=== PATIENT | female | born 1950 | race Two or more races ===

== ENCOUNTER 2016-11-08 08:22 | Emergency (ER) | payer MEDICARE, OTHER ==
[~2016-11-08] VITALS: Ht 157.5 cm; Wt 72.6 kg
[~2016-11-08 08:22] MED LIST: ACETAMINOPHEN-1 EAC1 ORAL; ACETAMINOPHEN500 M3 ORAL; ACTOS15 MG ORAL; ASPIR 8181 MG ORAL; ATORVASTATIN CA40 MG ORAL; BENAZEPRIL HCL20 MG ORAL; BENAZEPRIL HCL40 MG ORAL; CYCLOBENZAPRINE10 MG ORAL; GABAPENTIN300 MG PO; GLIMEPIRIDE4 MG ORAL; HYDROCHLOROTHIA25 MG ORAL; METFORMIN HCL1000 M1 ORAL; METFORMIN HCL850 M1 ORAL; NORCO 5-325 TA1 EACH ORAL; OMEPRAZOLE20 M2 PO; SIMVASTATIN40 MG ORAL; ZOFRAN ODT4 MG ORAL
[2016-11-08 08:33] VITALS: BP 154/82
[2016-11-08] MEDS ORDERED: Ketorolac 30mg Inj IV ONE (08:45)
[2016-11-08] MEDS ORDERED: LORazepam Inj 2mg/ml 1ml IV ONE (08:45)
[2016-11-08] MEDS ORDERED: Morphine Sulfate 4mg/ml Inj IVP ONE (08:45)
--- NOTE | 2016-11-08 09:17 | Emergency Room Report ---
History of Present Illness General Chief Complaint: Neck Pain Source: Patient, Family Member Present Illness HPI The patient presents with severe left-sided neck pain. This is been going on for several days. She's having difficulty turning her head and also sleeping. She denies any trauma. No numbness in UE. No weakness. In the past she had to be hospitalized for 5-6 days with his pain was severe. This happened in 2012 and an MRI was done at that time. She denies any exertional component to this. She also denies fevers, cough, sore throat, nausea, vomiting. She's been taking ibuprofen with little relief. She's not been getting massage or applying heat. She states the pain is 10/10 , burning and aching with muscle spasms. It radiates to her shoulder and upper back. The MRI in 2012 reveals: deposit of fat or hemangioma in the C4 vertebral body. Otherwise was negative exam. Allergies: Coded Allergies: No Known Allergies (Unverified , 06/15/12) Patient History Past Medical History: see triage record Social History: Denies: smoking Social History Narrative Here with her daughter Reviewed Nursing Documentation: PMH: Agreed, PSxH: Agreed Nursing Documentation-PMH Hx Cardiac Problems: Yes Hx Hypertension: Yes Hx Diabetes: Yes Hx Cancer: No Hx Gastrointestinal Problems: No Hx Neurological Problems: No - Rheumatic Arthritis Hx Peripheral Neuropathy: Yes Hx Weakness: Yes Review of Systems All Other Systems: negative except mentioned in HPI Physical Exam Vital Signs Date Time Temp Pulse Resp B/P (MAP) Pulse Ox O2 Delivery O2 Flow Rate FiO2 11/08/16 08:33 97.9 92 20 154/82 100 Room Air Sp02 EP Interpretation: reviewed, normal General Appearance: well appearing, no apparent distress, GCS 15 Head: normocephalic Eyes: bilateral eye normal inspection, bilateral eye PERRL ENT: moist mucus membranes Neck: no bony tend, limited range of motion - with muscle spasm, more on L Respiratory: chest non-tender, lungs clear, normal breath sounds Cardiovascular #1: regular rate, rhythm Cardiovascular #2: 2+ radial (R) Gastrointestinal: normal inspection, normal bowel sounds, non tender, no mass, non-distended Musculoskeletal: back normal - except upper back near neck - muscle spasms, gait/station normal, normal range of motion Neurologic: alert, oriented x3, motor strength/tone normal, DTRs symmetric, sensory intact, cerebellar normal, normal gait, speech normal Psychiatric: mood/affect normal - in pain Skin: normal inspection, warm/dry Medical Decision Making Diagnostic Impression: Primary Impression: Neck pain Additional Impression: Osteoarthritis Qualified Codes: M47.812 - Spondylosis without myelopathy or radiculopathy, cervical region ER Course Patient with several days of severe neck pain and stiffness with h/o same. Ddx : spasms, OA, atypical cardiac issue amongst others. No h/o trauma or strain. Also no red flag sy or signs. Evaluation with be with x-rays (as MRI in past) both c-spine and CXR, labs. Treatment will be aggressive with anti- inflammatories and analgesics and muscle relaxants. Films with DJD. EKG normal. CXR normal. Labs essentially unremarkable. Cervical collar placed by tech with some improvement. Placement appropriate and position good. Improved with treatment. Patient stable for outpatient observation and treatment. EKG Diagnostic Results Rate: normal Rhythm: NSR ST Segments: no acute changes Rhythm Strip Diag. Results EP Interpretation: yes Rhythm: NSR, no PVC's, no ectopy Chest X-Ray Diagnostic Results Chest X-Ray Diagnostic Results : Chest X-Ray Ordered: Yes # of Views/Limited/Complete: 1 View Indication: Other Interpretation: no consolidation, no effusion, no pneumothorax, no acute cardiopulmonary disease Impression: No acute disease Electronically Signed by: Keanu Harris MD Other X-Ray Diagnostic Results Other X-Ray Diagnostic Results : X-Ray ordered: c spine # of Views/Limited Vs Complete: 4 View Indication: Pain EP Interpretation: Yes Interpretation: no dislocation, no soft tissue swelling, no fractures, other - djd Impression: Other Electronically Signed by: Keanu Harris MD Last Vital Signs Date Time Temp Pulse Resp B/P (MAP) Pulse Ox O2 Delivery O2 Flow Rate FiO2 11/08/16 12:59 87 14 146/69 100 Room Air 11/08/16 12:42 97.8 Status: improved Disposition: HOME, SELF-CARE Condition: Improved Scripts Tramadol Hcl* (ULTRAM*) 50 Mg Tablet 50 MG ORAL Q6H Y for For Pain, #14 TAB 0 Refills Prov: Keanu Harris M.D. 11/08/16 Ibuprofen* (MOTRIN*) 600 Mg Tablet 600 MG ORAL Q6H Y for For Pain, #20 TAB Prov: Keanu Harris M.D. 11/08/16 Referrals: NOT CHOSEN DEEP/,REFERRING (PCP) Keanu Harris M.D. Nov 08, 2016 09:17
[2016-11-08 09:18] LABS: BASOPHILS % (AUTO) 0.9 % (0.0-2.0); EOSINOPHILS % (AUTO) 1.2 % (0.0-3.0); LYMPHOCYTES % (AUTO) 19.5 % (20.0-45.0); MEAN CORPUSCULAR HEMOGLOBIN 30.5 PG (27.0-31.0); MEAN CORPUSCULAR HGB CONC 32.2 G/DL (32.0-36.0); MEAN CORPUSCULAR VOLUME 95 FL (80-99); MONOCYTES % (AUTO) 8.2 % (1.0-10.0); NEUTROPHILS % (AUTO) 70.2 % (45.0-75.0); PLATELET COUNT 256 K/UL (150-450); RED BLOOD COUNT 3.38 M/UL (4.20-5.40); RED CELL DISTRIBUTION WIDTH 12.5 % (11.6-14.8); WHITE BLOOD COUNT 7.7 K/UL (4.8-10.8)
[2016-11-08 09:31] LABS: TROPONIN I < 0.30 ng/mL (<=0.30)
[2016-11-08 09:32] LABS: ALANINE AMINOTRANSFERASE 15 U/L (3-33); ALBUMIN/GLOBULIN RATIO 1.3 (1.0-2.7); ANION GAP 14 (5-15); ASPARTATE AMINO TRANSFERASE 15 U/L (5-40); CALCIUM 9.5 mg/dL (8.6-10.2); CARBON DIOXIDE 26 mEQ/L (20-30); CHLORIDE 97 mEQ/L (98-107); CREATININE 1.1 mg/dL (0.5-0.9); GLOMERULAR FILTRATION RATE 49.9 mL/min (>60); HEMOLYSIS 0; POTASSIUM 4.8 mEQ/L (3.4-4.9); SODIUM 137 mEQ/L (135-145); TOTAL PROTEIN 7.6 g/dL (6.6-8.7)
[2016-11-08 09:54] VITALS: BP 126/58
[2016-11-08 10:30] LABS: ERYTHROCYTE SEDIMENTATION RATE 91 MM/HR (0-30)
--- NOTE | 2016-11-08 11:08 | Diagnostic Imaging Report ---
Indication: Neck Pain Findings: 3 views of the cervical spine were obtained. Mild Degenerative changes of the cervical spine are demonstrated. This is characterized by vertebral endplate and facet osteophyte formation. There is no acute fracture identified. Alignment is normal. The open-mouth odontoid view shows an intact dens and good alignment of the lateral masses with respect to the body of C2. There is no soft tissue swelling. Impression: Mild spondylosis
--- NOTE | 2016-11-08 11:09 | Diagnostic Imaging Report ---
Indication: Dyspnea Comparison: None A single view chest radiograph was obtained. Findings: Cardiomediastinal appearance is within normal limits for age. Pulmonary vascularity is appropriate. The diaphragmatic contour is smooth and costophrenic angles are sharp. No pleural effusions are identified. The bones are osteopenic. Impression: No acute findings
[2016-11-08 11:13] VITALS: BP 134/65
[2016-11-08 12:42] VITALS: BP 146/69
[2016-11-08] MEDS ORDERED: TRAMADOL HCL50 MG ORAL (12:54)
[2016-11-08] MEDS ORDERED: IBUPROFEN600 MG ORAL (12:54)
[2016-11-08 12:59] VITALS: BP 146/69
== END 2016-11-08 12:59 | disposition home or self-care (01) ==
LOC: EMR 08:47
DX: M47.812 Spondylosis without myelopathy or radiculopathy, cervical region (principal); E11.9 Type 2 diabetes mellitus without complications; I10 Essential (primary) hypertension
CPT/HCPCS: 36415; 71010; 72040; 80053; 82550; 84484; 85025; 85651; 93005; 96374; 96375; 99284; J1885; J2270

== ENCOUNTER 2017-04-22 11:29 | Emergency (ER) | payer MEDICARE, OTHER ==
[~2017-04-22] VITALS: Ht 162.6 cm; Wt 81.6 kg
[~2017-04-22 11:29] MED LIST changes: +IBUPROFEN600 MG ORAL; +TRAMADOL HCL50 MG ORAL
[2017-04-22 12:25] VITALS: BP 147/58
[2017-04-22] MEDS ORDERED: Cyclobenzaprine 10mg Tab ORAL ONE (12:30)
--- NOTE | 2017-04-22 12:43 | Emergency Room Report ---
History of Present Illness General Chief Complaint: Pain Source: Patient, Family Member Present Illness HPI 67yo f presents with right shoulder pain for the past week she also been having a cough with clear sputum production, she denies shortness of breath, denies chest pain, denies abdominal pain or any other complaints She does report she tried Tylenol and ibuprofen with only partial relief she reports the pain is isolated to the right shoulder It's constant but worse with any range of motion of her shoulder Allergies: Coded Allergies: No Known Allergies (Unverified , 06/15/12) Patient History Past Medical History: see triage record Reviewed Nursing Documentation: PMH: Agreed, PSxH: Agreed Nursing Documentation-PMH Hx Cardiac Problems: Yes Hx Hypertension: Yes Hx Diabetes: Yes Hx Cancer: No Hx Gastrointestinal Problems: No Hx Neurological Problems: No - Rheumatic Arthritis Hx Peripheral Neuropathy: Yes Hx Weakness: Yes Review of Systems All Other Systems: negative except mentioned in HPI Physical Exam Vital Signs Date Time Temp Pulse Resp B/P (MAP) Pulse Ox O2 Delivery O2 Flow Rate FiO2 04/22/17 11:48 98.2 87 24 147/58 95 Room Air 98.2 Sp02 EP Interpretation: reviewed, normal General Appearance: no apparent distress, alert, non-toxic Head: normocephalic Eyes: bilateral eye normal inspection, bilateral eye PERRL, bilateral eye EOMI ENT: normal ENT inspection, hearing grossly normal, normal pharynx, no angioedema, normal voice, moist mucus membranes Neck: normal inspection, full range of motion, supple, supple/symm/no masses Respiratory: chest non-tender, lungs clear, normal breath sounds, chest symmetrical, palpation of chest normal Cardiovascular #1: normal peripheral pulses, regular rate, rhythm Cardiovascular #2: 2+ radial (R), 2+ radial (L) Gastrointestinal: normal inspection, non tender, soft, no mass, no guarding, no rebound Rectal: deferred Genitourinary: normal inspection, no CVA tenderness Musculoskeletal: back normal, gait/station normal, normal range of motion - Right shoulder with tenderness anterolateral flexion and abduction, nor erythema or warmth, non-tender, no calf tenderness Neurologic: alert, responsive, forepart reducer III-XII nml as tested, motor strength/tone normal, sensory intact, speech normal Psychiatric: judgement/insight normal, memory normal, mood/affect normal, no suicidal/homicidal ideation Skin: normal color, no rash, warm/dry, normal turgor Lymphatic: no adenopathy Medical Decision Making Reaction to Intervention: Improved Diagnostic Impression: Primary Impression: Pain ER Course Patient with right shoulder pain exam consistent with rotator cuff impingement syndrome, will give NSAIDs and muscle relaxants. She was given Flexeril here with some improvement. I'll recommend orthopedic follow-up as an outpatient. EKG Diagnostic Results EKG Time: 12:07 EP Interpretation: No ST Elevationsno depressions noted T-wave inversions Rate: normal Rhythm: NSR ST Segments: no acute changes ASA given to the pt in ED: No Rhythm Strip Diag. Results Rhythm Strip Time: 12:42 EP Interpretation: yes Rate: 63 Rhythm: NSR, no PVC's, no ectopy Other X-Ray Diagnostic Results Other X-Ray Diagnostic Results : X-Ray ordered: R shoulder # of Views/Limited Vs Complete: 1 View Indication: Pain EP Interpretation: Yes PA Xray: Interpretation reviewed Interpretation: no dislocation, no soft tissue swelling, no fractures Impression: No acute disease Electronically Signed by: 67yo f presents with right shoulder pain for the past week she also been becker Last Vital Signs Date Time Temp Pulse Resp B/P (MAP) Pulse Ox O2 Delivery O2 Flow Rate FiO2 04/22/17 12:34 98.2 04/22/17 12:25 82 24 147/58 95 Room Air Status: improved Disposition: HOME, SELF-CARE Condition: Stable Referrals: NON PHYSICIAN (PCP) LUCI DELUCA M.D Apr 22, 2017 12:43
[2017-04-22] MEDS ORDERED: Ketorolac 60mg Inj IM ONE (12:45)
[2017-04-22 12:47] LABS: BASOPHILS % (AUTO) 0.6 % (0.0-2.0); EOSINOPHILS % (AUTO) 0.8 % (0.0-3.0); HEMOGLOBIN 9.7 G/DL (12.0-16.0); LYMPHOCYTES % (AUTO) 15.1 % (20.0-45.0); MEAN CORPUSCULAR VOLUME 88 FL (80-99); MONOCYTES % (AUTO) 7.3 % (1.0-10.0); NEUTROPHILS % (AUTO) 76.2 % (45.0-75.0); PLATELET COUNT 345 K/UL (150-450); RED BLOOD COUNT 3.31 M/UL (4.20-5.40); RED CELL DISTRIBUTION WIDTH 12.1 % (11.6-14.8); WHITE BLOOD COUNT 9.8 K/UL (4.8-10.8)
[2017-04-22 12:59] LABS: ANION GAP 6 mmol/L (5-15); BLOOD UREA NITROGEN 32 mg/dL (7-18); CALCIUM 9.7 MG/DL (8.5-10.1); CARBON DIOXIDE 29 MMOL/L (21-32); CHLORIDE 99 MMOL/L (98-107); CREATININE 1.5 MG/DL (0.55-1.30); SODIUM 134 MMOL/L (136-145)
[2017-04-22 13:03] LABS: ALANINE AMINOTRANSFERASE 22 U/L (12-78); ALBUMIN 3.3 G/DL (3.4-5.0); ALBUMIN/GLOBULIN RATIO 0.7 (1.0-2.7); ALKALINE PHOSPHATASE 92 U/L (46-116); ASPARTATE AMINO TRANSFERASE 16 U/L (15-37); BILIRUBIN,TOTAL 0.2 MG/DL (0.2-1.0)
[2017-04-22] MEDS ORDERED: NORCO 5-325 TA1 EACH ORAL (14:27)
[2017-04-22] MEDS ORDERED: CYCLOBENZAPRINE10 MG ORAL (14:27)
[2017-04-22 14:41] VITALS: BP 148/78
--- NOTE | 2017-04-23 10:32 | Diagnostic Imaging Report ---
Indication: Right shoulder pain Technique: Right shoulder 3 views Comparison: None Findings: There is no acute fracture or dislocation. Acromioclavicular degenerative changes are present. There is osteopenia. Chondrocalcinosis is present. Impression: No acute osseous abnormality. Chronic findings as above.
--- NOTE | 2017-04-23 16:18 | Cardiology Report ---
APPROVED REPORT EKG Measurement Heart [id number] Normal sinus rhythm Low voltage QRS Borderline ECG
== END 2017-04-22 14:43 | disposition home or self-care (01) ==
LOC: EMR 12:29
DX: M75.41 Impingement syndrome of right shoulder (principal); I10 Essential (primary) hypertension; E11.9 Type 2 diabetes mellitus without complications; G62.9 Polyneuropathy, unspecified
CPT/HCPCS: 36415; 80053; 83690; 84484; 85025; 93005; 96372; 99283

== ENCOUNTER 2018-03-04 12:37 | Emergency (ER) | payer MEDICARE, OTHER ==
[~2018-03-04] VITALS: Ht 162.6 cm; Wt 81.6 kg
[2018-03-04 12:48] VITALS: BP 155/65
--- NOTE | 2018-03-04 12:48 | NUR ---
ED Nurse Note: Pt came into the Er w/ complaints of left lower back pain x 4 days. Rating the pain a 9/10. Non radiating. A + O x4. Ambulatory. Skin warm to touch. Pt denies any trauma.
[2018-03-04] MEDS ORDERED: HYDROcodone/Acetamin 5/325 tab ORAL ONE (13:00)
--- NOTE | 2018-03-04 13:01 | NUR ---
ED Nurse Note: Urine has been collected and sent to lab. Awaiting results.
--- NOTE | 2018-03-04 13:02 | NUR ---
ED Nurse Note: Pt went down to get xray via wheelchair.
--- NOTE | 2018-03-04 13:14 | NUR ---
ED Nurse Note: PT BACK FROM CT VIA WHEELCHAIR.
--- NOTE | 2018-03-04 14:32 | NUR ---
ED Nurse Note: Notified lab of urine results still pending. Awaiting results.
[2018-03-04 14:35] LABS: APPEARANCE,URINE CLEAR; BILIRUBIN, URINE NEGATIVE (NEGATIVE); COLOR,URINE PALE YELLOW; GLUCOSE, URINE (UA) 2+ (NEGATIVE); KETONES,URINE NEGATIVE (NEGATIVE); LEUKOCYTE ESTERASE ,URINE 1+ (NEGATIVE); NITRITE,URINE NEGATIVE (NEGATIVE); PH,URINE 6.5 (4.5-8.0); PROTEIN,URINE NEGATIVE (NEGATIVE); UROBILINOGEN,URINE NORMAL MG/DL (0.0-1.0)
[2018-03-04] MEDS ORDERED: NORCO 5-325 TA1 EACH ORAL (14:51)
[2018-03-04 14:55] VITALS: BP 130/75
--- NOTE | 2018-03-04 14:56 | NUR ---
ED Nurse Note: Discharge instructions given to pt. Answered all questions. Verbalized understanding. No acute distress noted. ID band removed. Left ER w/ all belongings and w/ a steady gait.
--- NOTE | 2018-03-04 21:01 | Emergency Room Report ---
History of Present Illness General Chief Complaint: Back Pain-No Injury Source: Patient Present Illness HPI The patient is a 68-year-old female presenting for left lower back pain for the past 3 days. She states that this began without any known cause. Pain is now a 9 out of 10 dull ache and does not radiate. Worse with movement such as twisting and bending. She denies previous injury to the area. She denies other symptoms including numbness, tingling, dysuria, hematuria, increased frequency, abdominal pain, N, V, F, chills Allergies: Coded Allergies: No Known Allergies (Unverified , 06/15/12) Patient History Past Medical History: see triage record Pertinent Family History: none Reviewed Nursing Documentation: PMH: Agreed; PSxH: Agreed Nursing Documentation-PMH Hx Cardiac Problems: Yes Hx Hypertension: Yes Hx Diabetes: Yes Hx Cancer: No Hx Gastrointestinal Problems: No Hx Neurological Problems: No - Rheumatic Arthritis Hx Peripheral Neuropathy: Yes Hx Weakness: Yes Review of Systems All Other Systems: negative except mentioned in HPI Physical Exam Vital Signs Date Time Temp Pulse Resp B/P (MAP) Pulse Ox O2 Delivery O2 Flow Rate FiO2 03/04/18 12:41 97.9 94 15 157/63 98 Room Air Sp02 EP Interpretation: reviewed, normal General Appearance: no apparent distress, alert, GCS 15, non-toxic Head: normocephalic, atraumatic Eyes: bilateral eye normal inspection, bilateral eye PERRL Respiratory: chest non-tender, lungs clear, normal breath sounds, speaking full sentences Cardiovascular #1: regular rate, rhythm, no edema Gastrointestinal: normal bowel sounds, non tender, soft, non-distended, no guarding Genitourinary: no CVA tenderness Musculoskeletal: back normal, tender - L lumbar paraspinal muscles and L lateral/posterior pelvis Neurologic: alert, oriented x3, responsive, motor strength/tone normal, sensory intact, speech normal Psychiatric: judgement/insight normal, memory normal, mood/affect normal, no suicidal/homicidal ideation Skin: normal color, no rash, warm/dry, well hydrated Medical Decision Making PA Attestation Dr. Hollingsworth is my supervising physician. Patient management was discussed with my supervising physician Diagnostic Impression: Primary Impression: Back pain ER Course The patient is a 68-year-old female presenting for left lower back pain for the past 3 days. Ddx considered include but not limited to sprain/strain, fracture, contusion, muscle spasm PE: Afebrile. NAD Abd soft and non tender No CVA tenderness L lumbar paraspinal muscles and L lateral/posterior pelvis. Evident pain with L hip flexion and extension Xray of pelvis shows degenerative changes. No acute findings SHe is given pain medication in ER and feels significantly better. She was told she needs to F/U with PCP G[facility]IN[facility] ER precautions given Laboratory Tests Test 03/04/18 12:00 Urine Color Pale yellow Urine Appearance Clear Urine pH 6.5 (4.5-8.0) Urine Specific Cornelia 1.015 (1.005-1.035) Urine Protein Negative (NEGATIVE) Urine Glucose (UA) 2+ (NEGATIVE) H Urine Ketones Negative (NEGATIVE) Urine Blood Negative (NEGATIVE) Urine Nitrite Negative (NEGATIVE) Urine Bilirubin Negative (NEGATIVE) Urine Urobilinogen Normal MG/DL (0.0-1.0) Urine Leukocyte Esterase 1+ (NEGATIVE) H Urine RBC 0-2 /HPF (0 - 2) Urine WBC 2-4 /HPF (0 - 2) Urine Squamous Epithelial Cells Occasional /LPF Urine Bacteria Occasional /HPF (NONE) Lab Results Impression UA unremarkable Other X-Ray Diagnostic Results Other X-Ray Diagnostic Results : X-Ray ordered: pelvis # of Views/Limited Vs Complete: 2 View Indication: Pain EP Interpretation: Yes PA Xray: Interpretation reviewed, by supervising MD, and agrees with findings. Interpretation: no dislocation, no soft tissue swelling, no fractures Impression: No acute disease Electronically Signed by: Ronnie Sheets PA-C Last Vital Signs Date Time Temp Pulse Resp B/P (MAP) Pulse Ox O2 Delivery O2 Flow Rate FiO2 03/04/18 14:55 98.0 78 20 130/75 98 Room Air Status: improved Disposition: HOME, SELF-CARE Condition: Improved Scripts Hydrocodone Bit/Acetaminophen 5-325* (NORCO 5-325*) 1 Each Tablet 1 TAB ORAL Q6H PRN for For Pain, #10 TAB 0 Refills Prov: RONNIE SHEETS PShyanne 03/04/18 Patient Instructions: Back Pain, Adult Additional Instructions: I discussed my findings with the patient. All questions and concerns have been answered. Treatment and medication compliance have been addressed. Return to ED if symptoms worsen, new symptoms arise, or if needed for any reason. Patient verbalized understanding of discharge instructions. Please keep your appointment with her primary doctor which is scheduled for 03/07 RONNIE SHEETS Mar 04, 2018 21:01
--- NOTE | 2018-03-05 11:57 | Diagnostic Imaging Report ---
Indication: Pain Technique: XRAY Bilateral Hip w/AP Pelvis Comparison: Correlation made to images of the pelvis from CT of the abdomen and pelvis 06/16/2012 Findings: Bones are demineralized. No radiographically acute fracture identified. There are degenerative changes of the hips with some sclerosis and subchondral cystic change. Some enthesopathic changes of the pelvic bones noted. Hip with joints are maintained. Symphysis pubis and sacroiliac joints are maintained. Degenerative changes are partially visualized in the lower lumbar spine. Bowel gas pattern unremarkable. Impression: No radiographically appreciable acute fracture. Additional findings as above.
== END 2018-03-04 14:56 | disposition home or self-care (01) ==
LOC: EMR 12:55
DX: M54.5 Low back pain (principal); M25.552 Pain in left hip; I10 Essential (primary) hypertension; E11.9 Type 2 diabetes mellitus without complications; M06.9 Rheumatoid arthritis, unspecified
CPT/HCPCS: 73521; 81003; 99283

== ENCOUNTER 2018-08-06 20:41 | Emergency (ER) | payer MEDICARE, OTHER ==
[~2018-08-06] VITALS: Ht 162.6 cm; Wt 81.6 kg
--- NOTE | 2018-08-06 20:45 | NUR ---
ED Nurse Note: Pt brought in by wheelchair for complaint of pain 10/10 on right knee. Pt states she was walking down the stair when she "felt a pop". From there she was unable to bear any weight on extremity. Pt denies fall.
--- NOTE | 2018-08-06 21:20 | Emergency Room Report ---
History of Present Illness General Chief Complaint: Lower Extremity Injury Source: Patient Present Illness HPI This is a 68-year-old female with history of high blood pressure and diabetes. She presents with chief complaint of left knee pain. She was walking and felt a pop in the operative area. She did not fall. Since then she is painful to bear weight. Pain is 10 out of 10. Worse with walking. better with rest. Rating down the calf. Denies any trauma. Allergies: Coded Allergies: No Known Allergies (Unverified , 06/15/12) Patient History Past Medical History: see triage record, old chart reviewed, DM, HTN Past Surgical History: other Pertinent Family History: none Social History: Denies: smoking Last Menstrual Period: NA Now: No : 0 Para: 0 Immunizations: other Reviewed Nursing Documentation: PMH: Agreed; PSxH: Agreed Nursing Documentation-PMH Hx Cardiac Problems: Yes Hx Hypertension: Yes Hx Diabetes: Yes Hx Cancer: No Hx Gastrointestinal Problems: No Hx Neurological Problems: Yes - ARTHRITIS Hx Peripheral Neuropathy: Yes Hx Weakness: Yes Review of Systems Eye: Denies: eye pain, blurred vision ENT: Denies: ear pain, nose congestion, throat swelling Respiratory: Denies: cough, shortness of breath Cardiovascular: Denies: chest pain, palpitations Gastrointestinal: Denies: abdominal pain, diarrhea, nausea, vomiting Musculoskeletal: Reports: joint pain, joint swelling; Denies: back pain Skin: Denies: rash Neurological: Denies: headache, numbness Endocrine: Denies: increased thirst, increased urine Hematologic/Lymphatic: Denies: easy bruising All Other Systems: negative except mentioned in HPI Physical Exam Vital Signs Date Time Temp Pulse Resp B/P (MAP) Pulse Ox O2 Delivery O2 Flow Rate FiO2 08/06/18 20:44 98.1 94 16 134/63 (86) 96 Room Air vitals unremarkable. Sp02 EP Interpretation: reviewed, normal General Appearance: well appearing, no apparent distress, alert Head: normocephalic, atraumatic Eyes: bilateral eye PERRL, bilateral eye EOMI ENT: hearing grossly normal, normal pharynx Neck: full range of motion, supple, no meningismus Respiratory: chest non-tender, lungs clear, normal breath sounds Cardiovascular #1: regular rate, rhythm, no murmur Gastrointestinal: normal bowel sounds, non tender, no mass, no organomegaly, no bruit, non-distended Musculoskeletal: back normal, normal range of motion, other - left knee: TTP over popliteal fossa. TTP to calf. Psychiatric: mood/affect normal Skin: warm/dry Procedures Splinting Splinting : Consent: Verbal Location: Left knee Pre-Made Type: ANIA wrap Pre-Proc Neuro Vasc Exam: normal Post-Proc Neuro Vasc Exam: normal Patient Tolerated: Well Complications: None Medical Decision Making Diagnostic Impression: Primary Impression: Knee sprain Qualified Codes: S83.522A - Sprain of posterior cruciate ligament of left knee , initial encounter ER Course Patient with left knee pain. No trauma. She does have degenerative changes and bone spur. Most likely ligament injury. No DVT. No popliteal cyst. Will discharge home. Other X-Ray Diagnostic Results Other X-Ray Diagnostic Results : X-Ray ordered: LEft knee x-rays # of Views/Limited Vs Complete: 4 View Indication: Pain EP Interpretation: Yes Interpretation: no dislocation, no soft tissue swelling, no fractures, other - degenerative changes Impression: No acute disease Electronically Signed by: Grady Cheek MD CT/MRI/US Diagnostic Results CT/MRI/US Diagnostic Results : Imaging Test Ordered: Left knee ultrasound Impression Negative for DVT. Read by molder apprentice Last Vital Signs Date Time Temp Pulse Resp B/P (MAP) Pulse Ox O2 Delivery O2 Flow Rate FiO2 08/06/18 20:44 98.1 94 16 134/63 (86) 96 Room Air Status: improved Disposition: HOME, SELF-CARE Condition: Stable Scripts Ibuprofen* (MOTRIN*) 600 Mg Tablet 600 MG ORAL THREE TIMES A DAY, #30 TAB 0 Refills Prov: Grady Cheek MD 08/06/18 Hydrocodone/Acetaminophen 5-325* (HYDROCODONE/ACETAMINOPHEN 5-325*) 1 Each Tablet 1 TAB ORAL Q6H PRN for For Pain, #15 TAB 0 Refills Prov: Grady Cheek MD 08/06/18 Patient Instructions: Knee Sprain Additional Instructions: Follow-up with in 7 days. Return if worse. Grady Cheek MD Aug 06, 2018 21:20
[2018-08-06] MEDS ORDERED: HYDROcodone/Acetamin 5/325 tab ORAL ONE (21:30)
--- NOTE | 2018-08-06 21:32 | NUR ---
ED Nurse Note: US being performed @ this time.
[2018-08-06] MEDS ORDERED: IBUPROFEN600 MG ORAL (22:10)
[2018-08-06] MEDS ORDERED: HYDROCODON-ACE1 EA15 ORAL (22:10)
[2018-08-06 22:16] VITALS: BP 129/77
--- NOTE | 2018-08-06 22:16 | NUR ---
ED Nurse Note: Pt cleared by MD. Discharge paperwork and prescriptions provided. pt verbalized understanding of all instructions. ID band removed. Pt accompanied by daughter, wheelchair provided. Pt A/Ox4, VSS. Pt shows no signs of acute distress.
--- NOTE | 2018-08-07 12:05 | Diagnostic Imaging Report ---
Indication: Left lower extremity pain and swelling. Technique: Duplex Doppler imaging performed from the left common femoral vein to the popliteal vein. FINDINGS: Normal compressibility demonstrated from the common femoral vein to the popliteal vein. Respiratory phasicity and good augmentation demonstrated on waveform analysis. There is no evidence of thrombosis. IMPRESSION: No evidence of deep venous thrombosis within the left lower extremity.
--- NOTE | 2018-08-07 12:41 | Diagnostic Imaging Report ---
INDICATION: Knee Pain COMPARISON: None 3 views of the left knee were obtained. FINDINGS: There is joint space narrowing with marginal osteophyte formation and subchondral sclerosis. Chondrocalcinosis noted. Soft tissue swelling may be present but there is no acute fracture identified. The bones are osteopenic. IMPRESSION: No acute injury appreciated
== END 2018-08-06 22:16 | disposition home or self-care (01) ==
LOC: EMR 21:06
DX: S83.522A Sprain of posterior cruciate ligament of left knee, initial encounter (principal); I10 Essential (primary) hypertension; X58.XXXA Exposure to other specified factors, initial encounter; Y92.9 Unspecified place or not applicable; M19.90 Unspecified osteoarthritis, unspecified site; E11.42 Type 2 diabetes mellitus with diabetic polyneuropathy
CPT/HCPCS: 93971; 99284